=== PATIENT | male | born 1995 | race Caucasian/White ===

== ENCOUNTER 2017-08-16 22:02 | Emergency (ER) | payer OTHER ==
[2017-08-16 22:08] VITALS: O2SAT 100
[2017-08-16] MEDS ORDERED: Sodium Chloride 0.9% 1,000 ML IV STA ×2 (22:30→23:10)
[2017-08-16] MEDS ORDERED: DiphenhydrAMINE 50 mg/ml Inj IV STA (22:30)
[2017-08-16] MEDS ORDERED: Albuterol-Ipratrop 3 mg / 0.5 (3 ml) UD INH STA (22:30)
[2017-08-16] MEDS ORDERED: DiphenhydrAMINE 50 mg/ml Inj ONE (22:42)
[2017-08-16] MEDS ORDERED: Albuterol-Ipratrop 3 mg / 0.5 (3 ml) UD ONE (22:43)
--- NOTE | 2017-08-16 23:08 | ED PDOC ---
HPI: Allergic Reaction Time Seen by Provider: 08/16/17 22:30 Chief Complaint (Nursing): Allergic Reaction Chief Complaint (Provider): allergic reaction History Per: Patient History/Exam Limitations: no limitations Onset/Duration Of Symptoms: Hrs (2), Sudden Onset Current Symptoms Are (Timing): Still Present Context: Food Possible Cause: Food Associated Symptoms: Skin Rash, Swelling, Dyspnea, Trouble Swallowing, Itching, Redness Home/EMS Treatment: Benadryl Severity: Moderate Additional Complaint(s): 21yo male c/o allergic reaction he believes to soy milk he ingested around 830p , with reaction starting about an hour later and including itch, rash to face/ chest/neck, mild trouble swallowing and SOB/cough. Took a benadryl at home. Has had soy milk before and has had allergic reactions to seasonal triggers prior. Past Medical History Reviewed: Historical Data, Nursing Documentation, Vital Signs Vital Signs: Last Vital Signs Temp 98.1 F 08/16/17 22:06 Pulse 107 H 08/16/17 22:06 Resp 20 08/16/17 22:06 BP 166/106 H 08/16/17 22:06 Pulse Ox 100 08/16/17 22:06 - Medical History PMH: No Chronic Diseases - Family History Family History: States: Unknown Family Hx - Social History Alcohol: None Drugs: Cannabis - Home Medications Home Medications: Ambulatory Orders Medication Instructions Recorded DiphenhydrAMINE [Benadryl] 25 mg PO Q6 PRN #10 cap 08/17/17 Fluticasone Nasal [Flonase] 1 actuation NS DAILY #1 spr 08/17/17 Prednisone 50 mg PO DAILY #3 tab 08/17/17 Pseudoephedrine HCl [Sudafed] 30 mg PO Q4 PRN #12 tablet 08/17/17 - Allergies Allergies/Adverse Reactions: Allergies Allergy/AdvReac Type Severity Reaction Status Date / Time No Known Allergies Allergy Verified 08/16/17 22:06 Review of Systems Constitutional: Negative for: Fever ENT: Positive for: Throat Swelling. Negative for: Nose Pain, Throat Pain Cardiovascular: Negative for: Palpitations Respiratory: Positive for: Cough, Shortness of Breath, Wheezing Gastrointestinal: Negative for: Abdominal Pain Genitourinary Male: Negative for: Dysuria Musculoskeletal: Negative for: Neck Pain Skin: Negative for: Rash, Lesions Neurological: Negative for: Weakness, Numbness Psych: Negative for: Anxiety Physical Exam - Reviewed Nursing Documentation Reviewed: Yes Vital Signs Reviewed: Yes - Physical Exam Appears: Positive for: Well, Non-toxic, No Acute Distress Head Exam: Positive for: ATRAUMATIC, NORMAL INSPECTION, NORMOCEPHALIC Skin: Positive for: Warm, Rash (erythema face/chest) Eye Exam: Positive for: EOMI, Normal appearance, PERRL ENT: Positive for: Normal ENT Inspection, Pharyngeal Erythema, Other ( oropharynx patent). Negative for: Tonsillar Swelling Neck: Positive for: Normal, Painless ROM Cardiovascular/Chest: Positive for: Regular Rate, Rhythm Respiratory: Positive for: Wheezing. Negative for: Decreased Breath Sounds, Respiratory Distress Gastrointestinal/Abdominal: Positive for: Soft. Negative for: Tenderness Back: Positive for: Normal Inspection Extremity: Positive for: Normal ROM Neurologic/Psych: Positive for: Alert, Oriented. Negative for: Motor/Sensory Deficits - ECG O2 Sat by Pulse Oximetry: 100 Pulse Ox Interpretation: Normal - Progress ED Course And Treament: workup for acute allergic reaction initiated solumedrol, benardyl, IVF and duoneb SPO2 normal re-eval 1225a improved, no itch, normal swallowing, lungs clear, rash mostly resolved. nasal congestion remains but thats chronic per pt. Wants to go home. DC w Rx antihistamines, fluticasone nasal, sudafed and benadryl, followup allergy testing Disposition - Clinical Impression Clinical Impression: Allergic reaction, Allergic rhinitis - Patient ED Disposition Is Patient to be Admitted: Transfer of Care Counseled Patient/Family Regarding: Studies Performed, Diagnosis - Disposition Referrals: [facility] [Outside] Disposition: Transfer of Care Disposition Time: 23:55 Condition: STABLE Additional Instructions: Return to ER for any return of allergic symptoms. Followup with PMD or director rehabilitation program for further testing. Prescriptions: DiphenhydrAMINE [Benadryl] 25 mg PO Q6 PRN #10 cap PRN Reason: Allergy Symptoms Fluticasone Nasal [Flonase] 1 actuation NS DAILY #1 spr Prednisone 50 mg PO DAILY #3 tab Pseudoephedrine HCl [Sudafed] 30 mg PO Q4 PRN #12 tablet PRN Reason: Other Instructions: Food Allergy, Allergy Skin Testing Forms: [employer] (Mongolian) Patient Signed Over To: Terell Martínez Handoff Comments: pending re-eval and dispo
[2017-08-17 00:54] VITALS: BP 144/90; PULSE 95; RESP 18; TEMP 98.3
== END 2017-08-17 00:40 | disposition home or self-care (01) ==
LOC: H.ER 22:02
DX: T78.40XA Allergy, unspecified, initial encounter (principal); J30.9 Allergic rhinitis, unspecified
CPT/HCPCS: 96374; J1200; J2930; J7030